=== PATIENT | male | born 1995 | race Caucasian/White ===

== ENCOUNTER 2016-09-11 18:02 | Emergency (ER) | payer OTHER ==
[~2016-09-11] VITALS: Ht 170.2 cm; Wt 66.7 kg
[~2016-09-11 18:02] MED LIST: AZIT250T PO; IBUP-103 PO
[2016-09-11 18:10] VITALS: TEMP 36.8; Ht 170.2 cm; Wt 66.7 kg
[2016-09-11] MEDS ORDERED: SODIUM CHLORIDE 0.9% 1000ML 1,000 ML IV STA (18:33)
[2016-09-11] MEDS ORDERED: KETOROLAC TROMETHAMINE 30 MG/ML VIAL IV STA (18:33)
--- NOTE | 2016-09-11 18:50 | EMERGENCY ROOM VISIT NOTE ---
History Report prepared by Anna Marie: Florencia Fierro Under the Supervision of: Dr. Evert Root M.D. First contact with patient: 18:24 Chief Complaint: CHEST PAIN Stated Complaint: CHEST PAIN,HEART ACHE Nursing Triage Summary: for the past week I have had intermittent chest pains/ "heart ache" denies any cardiac history. denies sob. "It just comes out of the blue" History of Present Illness The patient is a 20 year old male who presents to the Emergency Room with complaints of worsening chest pain with onset one week ago. He rates his discomfort as an 8/10. Today, the patient was working on homework when he started to experience more severe chest pain. He states that movement makes the pain worse, and that he feels as if his heart is racing when he climbs the stairs. When he leans on his left side, he feels that the chest pain is worse, causing a pressure sensation over his heart. At times, when he takes a deep breath, he feels as if someone is stabbing his heart. For the pain, the patient has tried using an inhaler, with some relief. The patient denies any trauma, any cardiac history, heavy weight lifting, fevers, cough, or cold over the past week, any past medical history. The patient notes that he smokes. Source of History: patient Onset: 1 week ago Position: chest Symptom Intensity: 8/10 Quality: other (chest pain) Timing: worsening Modifying Factors (Worsening): breathing, movement, other (leaning on his left side) Associated Symptoms: No cough, No fevers Note: The patient denies having cold symptoms over the past week. Review of Systems See HPI for pertinent positives & negatives. A total of 10 systems reviewed and were otherwise negative. Past Medical & Surgical Medical Problems: (1) Eczema (2) H. pylori infection Family History No significant family history Social History Smoking Status: Never Smoker Drug Use: none Marital Status: single Housing Status: unknown Occupation Status: student Current/Historical Medications Scheduled Famotidine (Pepcid), 40 MG PO HS Allergies Coded Allergies: No Known Allergies (Unverified , 09/11/16) Physical Exam Vital Signs Date Time Temp Pulse Resp B/P Pulse Ox O2 Delivery O2 Flow Rate FiO2 09/11/16 21:15 87 19 133/77 98 09/11/16 19:32 67 13 100 09/11/16 19:28 121/61 09/11/16 19:12 65 09/11/16 19:10 100 Room Air 09/11/16 19:07 135/74 09/11/16 18:10 36.8 75 18 142/80 100 Room Air Physical Exam GENERAL: Patient is a healthy-appearing well-nourished HEAD: Normocephalic atraumatic EYES: Ocular movements intact pupils equal and react to light OROPHARYNX mucous membranes are moist no exudates present no erythema or edema present NECK: Supple no nuchal rigidity CHEST: Good equal expansion LUNGS: Clear and equal to auscultation CARDIAC: Normal S1 and S2 ABDOMEN: Soft nontender no guarding BACK: No CVA tenderness EXTREMITIES: No pain upon palpation normal muscle strength in all groups no clubbing cyanosis or edema NEURO: Patient is following commands is answering questions appropriately. Alert and oriented x3 Cranial Nerves 2-12 grossly intact Medical Decision & Procedures ER Provider Diagnostic Interpretation: X-ray results as stated below per interpretation by me and the radiologist: SINGLE VIEW CHEST CLINICAL HISTORY: Atypical chest pain. FINDINGS: An AP, portable, upright chest radiograph is compared to study dated 04/20/2016. The examination is mildly degraded by portable technique and patient rotation. The cardiomediastinal silhouette is unremarkable. The lungs and pleural spaces are clear. No pneumothorax is seen. The bony thorax is grossly intact. IMPRESSION: No active disease in the chest. Electronically signed by: Wil Thompson M.D. 09/11/2016 7:26 PM Dictated Date/Time: 09/11/2016 7:25 PM Laboratory Results 09/11/16 18:50 Red Blood Count 5.53, Mean Corpuscular Volume 85.4, Mean Corpuscular Hemoglobin 29.8, Mean Corpuscular Hemoglobin Concent 35.0, Mean Platelet Volume 10.6, Neutrophils (%) (Auto) 59.7, Lymphocytes (%) (Auto) 25.2, Monocytes (%) (Auto) 6.5, Eosinophils (%) (Auto) 7.8, Basophils (%) (Auto) 0.3, Neutrophils # (Auto) 3.59, Lymphocytes # (Auto) 1.52, Monocytes # (Auto) 0.39, Eosinophils # (Auto) 0.47, Basophils # (Auto) 0.02 09/11/16 18:50 Test 09/11/16 18:50 09/11/16 19:01 09/11/16 19:08 09/11/16 20:47 White Blood Count 6.02 K/uL (4.8-10.8) Red Blood Count 5.53 M/uL (4.7-6.1) Hemoglobin 16.5 g/dL (14.0-18.0) Hematocrit 47.2 % (42-52) Mean Corpuscular Volume 85.4 fL (80-100) Mean Corpuscular Hemoglobin 29.8 pg (25-34) Mean Corpuscular Hemoglobin Concent 35.0 g/dl (32-36) Platelet Count 241 K/uL (130-400) Mean Platelet Volume 10.6 fL (7.4-10.4) Neutrophils (%) (Auto) 59.7 % Lymphocytes (%) (Auto) 25.2 % Monocytes (%) (Auto) 6.5 % Eosinophils (%) (Auto) 7.8 % Basophils (%) (Auto) 0.3 % Neutrophils # (Auto) 3.59 K/uL (1.4-6.5) Lymphocytes # (Auto) 1.52 K/uL (1.2-3.4) Monocytes # (Auto) 0.39 K/uL (0.11-0.59) Eosinophils # (Auto) 0.47 K/uL (0-0.5) Basophils # (Auto) 0.02 K/uL (0-0.2) RDW Standard Deviation 37.9 fL (36.4-46.3) RDW Coefficient of Variation 12.2 % (11.5-14.5) Immature Granulocyte % (Auto) 0.5 % Immature Granulocyte # (Auto) 0.03 K/uL (0.00-0.02) Est Creatinine Clear Calc Drug Dose 125.6 ml/min Estimated GFR () 143.0 Estimated GFR (Non- 123.4 BUN/Creatinine Ratio 16.7 (10-20) Calcium Level 8.9 mg/dl (8.5-10.1) Total Bilirubin 0.7 mg/dl (0.2-1) Direct Bilirubin mg/dl (0-0.2) Aspartate Amino Transf (AST/SGOT) 29 U/L (15-37) Alanine Aminotransferase (ALT/SGPT) 75 U/L (12-78) Alkaline Phosphatase 73 U/L (45-117) Total Creatine Kinase 82 U/L (39-308) Creatine Kinase MB 1.0 ng/ml (0.5-3.6) Creatine Kinase MB Ratio 1.2 (0-3.0) Troponin I < 0.015 ng/ml (0-0.045) Total Protein 7.5 gm/dl (6.4-8.2) Albumin 4.4 gm/dl (3.4-5.0) Lipase 158 U/L (73-393) Chemistry Specimen Hemolysis Bedside Hemoglobin 17.0 g/dl (14.0-18.0) Bedside Hematocrit 50 % (42-52) Bedside Sodium 142 mEq/L (135-144) Bedside Potassium 4.0 mEq/L (3.3-5.0) Bedside Chloride 102 mEq/L (101-112) Bedside Total CO2 27 mEq/l (24-31) Anion Gap 18.0 mmol/L (16-25) Bedside Blood Urea Nitrogen 16 mg/dl (7-18) Bedside Creatinine 0.8 mg/dl (0.6-1.3) Bedside Glucose (other) 92 mg/dl (70-99) Bedside Ionized Calcium (Ross) 1.21 mmol/l (1.12-1.32) Bedside D-Dimer 48 ng/mlFEU (0-450) Bedside Troponin I 0.000 ng/ml (0-0.045) Medications Administered Medications (Trade) Dose Ordered Sig/Shi Route Start Time Stop Time Status Last Admin Dose Admin Sodium Chloride (Nss 1000ml) 1,000 ml @ 999 mls/hr Q1H1M STAT IV 09/11/16 18:33 09/11/16 19:33 DC 09/11/16 19:10 999 MLS/HR Ketorolac Tromethamine (Toradol Inj) 30 mg NOW STAT IV 09/11/16 18:33 09/11/16 18:37 DC 09/11/16 19:09 30 MG Famotidine (Pepcid Tab) 20 mg NOW ONCE PO 09/11/16 20:30 09/11/16 20:31 DC 09/11/16 20:48 20 MG Sucralfate (Carafate Tab) 1 gm NOW ONCE PO 2/13/17 20:30 09/11/16 20:31 DC 09/11/16 20:48 1 GM Al Hydroxide/Mg Hydroxide (Maalox Susp) 30 ml STK-MED ONCE .ROUTE 09/11/16 20:45 09/11/16 20:46 DC 09/11/16 20:49 30 ML Lidocaine HCl (Viscous Lidocaine 2% Soln) 20 ml STK-MED ONCE .ROUTE 09/11/16 20:45 09/11/16 20:47 DC 09/11/16 20:49 20 ML ECG Indication: chest pain Rate (beats per minute): 67 Rhythm: normal sinus Findings: no ectopy, other (diffuse ST wave elevation in ) ED Course 1828: Past medical records reviewed. The patient was evaluated in room A4. A complete history and physical examination was performed. 1832: Toradol 30 mg IV, Sodium Chloride 1000 ml @ 999 mls/hr IV 2027: GI Cocktail 24 ml PO 2029: Carafate Tab 1 gm PO, Pepcid Tab 20 mg PO 2044: Lidocaine HCl 20 ml PO, Maalox Susp 30 ml PO 2058: Upon reexamination the patient is doing well. I discussed results and treatment plan with the patient. He verbalizes agreement and understanding. The patient is ready for discharge. Medical Decision The patient is a 20 year old male who presents to the ED with complaints of chest pain. Differential diagnosis: Etiologies such as cardiac ischemia, aortic dissection, pulmonary embolism, pneumonia, pneumothorax, musculoskeletal, infections, pericarditis, myocarditis , esophageal rupture, gastrointestinal, as well as others were entertained. The patient here in the emergency department has a normal EKG. As the patient' s pain has been ongoing for greater than 8 hours I expect his troponin to be elevated. As such she does not. The patient was given a GI cocktail, Pepcid, Carafate in the emergency department along with a normal saline bolus and Toradol. Repeat examination revealed improvement the patient's symptoms. I do believe that the patient as well as to be discharged home for follow-up with gastroenterology. Patient was in agreement with treatment plan. Impression Primary Impression: Precordial chest pain Additional Impression: Acid reflux Scribe Attestation The scribe's documentation has been prepared under my direction and personally reviewed by me in its entirety. I confirm that the note above accurately reflects all work, treatment, procedures, and medical decision making performed by me. Departure Information Dispostion Home / Self-Care Prescriptions Famotidine (Pepcid) 40 Mg Tab 40 MG PO HS for 10 Days, #10 TAB Prov: Evert Root MD 09/11/16 Forms HOME CARE DOCUMENTATION FORM, IMPORTANT VISIT INFORMATION, School Instructions, Work Instructions Patient Instructions My [facility] Additional Instructions Take 5 ml Maalox before every meal and at bedtime Clear liquid diet next 48 hours You have been examined and treated today on an emergency basis only. This is not a substitute for, or an effort to provide, complete comprehensive medical care. It is impossible to recognize and treat all injuries or illnesses in a single emergency department visit. It is therefore important that you follow up closely with [facility]. Call as soon as possible for an appointment. Thank you for your time and consideration. I look forward to speaking with you again soon. Please don't hesitate to call us if you have any questions. Problem Qualifiers Additional Impression: Acid reflux Esophagitis presence: with esophagitis Qualified Codes: K21.0 - Gastro- esophageal reflux disease with esophagitis
[2016-09-11 19:10] VITALS: O2SAT 100
[2016-09-11 19:13] LABS: ISTAT CREATININE 0.8 mg/dl (0.6-1.3); ISTAT IONIZED CALCIUM 1.21 mmol/l (1.12-1.32)
--- NOTE | 2016-09-11 19:27 | DIAGNOSTIC IMAGING REPORT ---
SINGLE VIEW CHEST CLINICAL HISTORY: Atypical chest pain. FINDINGS: An AP, portable, upright chest radiograph is compared to study dated 04/20/2016. The examination is mildly degraded by portable technique and patient rotation. The cardiomediastinal silhouette is unremarkable. The lungs and pleural spaces are clear. No pneumothorax is seen. The bony thorax is grossly intact. IMPRESSION: No active disease in the chest. Electronically signed by: Wil Thompson M.D. 09/11/2016 7:26 PM Dictated Date/Time: 09/11/2016 7:25 PM
[2016-09-11 19:29] LABS: BASO % 0.3 %; BASO ABS # 0.02 K/uL (0-0.2); COMPLETE YES; EOS % 7.8 %; HEMATOCRIT 47.2 % (42-52); IG% 0.5 %; LYMPH % 25.2 %; LYMPH ABS # 1.52 K/uL (1.2-3.4); MEAN CELL VOLUME 85.4 fL (80-100); MEAN CORPUSCULAR HEMOGLOBIN 29.8 pg (25-34); MEAN PLATELET VOLUME 10.6 fL (7.4-10.4); MONO % 6.5 %; NEUT % 59.7 %; PLATELET COUNT 241 K/uL (130-400); RED BLOOD COUNT 5.53 M/uL (4.7-6.1); WHITE BLOOD COUNT 6.02 K/uL (4.8-10.8)
[2016-09-11 19:32] LABS: ALT/SGPT 75 U/L (12-78); AST/SGOT 29 U/L (15-37); BLOOD UREA NITROGEN 15 mg/dl (7-18); BUN/CREATININE RATIO 16.7 (10-20); CALCIUM 8.9 mg/dl (8.5-10.1); CARBON DIOXIDE 29 mmol/L (21-32); CHLORIDE 106 mmol/L (98-107); CREATININE 0.87 mg/dl (0.60-1.40); GLUCOSE 88 mg/dl (70-99); SODIUM 142 mmol/L (136-145)
[2016-09-11 19:57] LABS: ALKALINE PHOSPHATASE 73 U/L (45-117); CKMB/CK RATIO 1.2 (0-3.0)
[2016-09-11] MEDS ORDERED: GI COCKTAIL PO STA (20:28)
[2016-09-11] MEDS ORDERED: FAMOTIDINE 20 MG TAB PO ONE (20:30)
[2016-09-11] MEDS ORDERED: SUCRALFATE 1 GM TAB PO ONE (20:30)
[2016-09-11] MEDS ORDERED: LIDOCAINE HCL 2% VISC SOLN 20 ML UDC ONE (20:45)
[2016-09-11] MEDS ORDERED: ALUMINUM/MAGNESIUM SUSP 30 ML UDC ONE (20:45)
[2016-09-11] MEDS ORDERED: FAMO40TA6 PO (20:59)
[2016-09-11 21:15] VITALS: BP 133/77; PULSE 87; O2SAT 98
== END 2016-09-11 21:15 | disposition home or self-care (01) ==
LOC: C.EDB 18:03 → C.EDA 21:15
DX: R07.2 Precordial pain (principal); K21.0 Gastro-esophageal reflux disease with esophagitis

== ENCOUNTER 2016-09-23 03:26 | Emergency (ER) | payer OTHER ==
[~2016-09-23] VITALS: Ht 167.6 cm; Wt 67.9 kg
[2016-09-23 03:49] VITALS: TEMP 36.8; Ht 167.6 cm; Wt 67.9 kg
[2016-09-23] MEDS ORDERED: CIPROFLOXACIN HCL 0.3% OP SOLN 2.5 ML BTL OPL ONE (06:15)
[2016-09-23 06:28] VITALS: BP 120/82; PULSE 66; O2SAT 98
[2016-09-23] MEDS ORDERED: AZITTAB PO (06:30)
--- NOTE | 2016-09-23 06:41 | EMERGENCY ROOM VISIT NOTE ---
History Report prepared by Anna Marie: Nirmal Cortez Under the Supervision of: Dr. Vanda Gutierrez D.O. First contact with patient: 05:51 Chief Complaint: EYE ASSESSMENT Stated Complaint: RED EYE,SINUS,SORE THROAT History of Present Illness The patient is a 21 year old male who presents to the Emergency Room with complaints of constant left side eye drainage and itching beginning a few hours ago. He states that his symptoms began with a sore throat five days ago. He states that his sore throat is worse in the mornings and improves throughout the day with use of painkillers. The patient does not wear glasses or contacts. Source of History: patient Onset: a few hours ago Position: eye (left) Quality: other (drainage and itching) Timing: constant Associated Symptoms: + sorethroat Review of Systems See HPI for pertinent positives & negatives. A total of 10 systems reviewed and were otherwise negative. Past Medical & Surgical Medical Problems: (1) Eczema (2) H. pylori infection Family History No significant family history Social History Smoking Status: Former Smoker Drug Use: none Marital Status: single Housing Status: unknown Occupation Status: student Current/Historical Medications Scheduled Azithromycin (Zithromax Z-Nithin), 0 PO UD Allergies Coded Allergies: No Known Allergies (Unverified , 09/23/16) Physical Exam Vital Signs Date Time Temp Pulse Resp B/P Pulse Ox O2 Delivery O2 Flow Rate FiO2 09/23/16 06:28 66 18 120/82 98 Room Air 09/23/16 03:49 36.8 76 18 145/77 97 Room Air Right Eye Acuity: 20/30 Left Eye Acuity: 20/30 Physical Exam HEENT: Head - normocephalic and atraumatic Pupils are equal, round, and reactive to light. Extraocular eye muscles are intact, and sclera are anicteric. Mild lid edema to the left eye. No surrounding erythema. There is moderate scleral injection noted with some thick yellow mucus coming from that eye. Nose - moist nasal mucosa without discharge. Mouth - moist buccal mucosa. Ears - Left ear is blocked by cerumen. Right ear appears normal. Oropharynx is nonerythematous and there is no tonsillar exudate or edema noted. Neck: Supple; no JVD, nuchal rigidity, cervical lymphadenopathy. Heart: Regular rate and rhythm. There is a normal S1 and S2 with no murmurs, clicks, or gallops appreciated. Lungs: Clear to auscultation bilaterally with no wheezes, rales, or rhonchi. Abdomen: Soft, completely nontender, nondistended, with good bowel sounds. There are no palpable pulsatile masses or hepatosplenomegaly. There is no guarding, rigidity, or rebound noted. Extremities: No evidence of cyanosis, clubbing, or edema. There are easily palpable peripheral pulses. Skin: warm and dry with good turgor and no rashes. Medical Decision & Procedures Medications Administered Medications (Trade) Dose Ordered Sig/Shi Route Start Time Stop Time Status Last Admin Dose Admin Ciprofloxacin HCl (Ciprofloxacin 0.3% Op Soln) 2 drops NOW ONCE OPL 09/23/16 06:15 09/23/16 06:16 DC 09/23/16 06:14 2 DROPS Procedure Medications include: Ciprofloxacin 2 drops OPL. ED Course 0555: Past medical records reviewed. The patient was evaluated in room A11. A complete history and physical exam was performed. 0615: Ordered Ciprofloxacin 0.3% Op Soln 2 drops OPL. 0630: Upon reevaluation, the patient is resting comfortably. I discussed findings and results with him. He verbalized agreement of the treatment plan. The patient was discharged home. Medical Decision The patient is a 21 year old male who presents to the ED with left eye drainage. Differential diagnosis includes conjunctivitis, orbital cellulitis, periorbital cellulitis, URI, pharyngitis, mononucleosis, as well as other etiologies were considered. This is a 21-year-old male patient who describes symptoms of an upper respiratory infection. He has since developed conjunctivitis to the left eye. He complains mostly with sore throat. His symptoms seem consistent with a viral URI and pink eye. However, the patient is concerned that he may have a bacterial infection. The patient was placed on Ciloxan eyedrops for the next 3 days. I also given prescription for antibiotics if his sore throat is not improving or if his symptoms worsen. Otherwise, the patient can follow-up with student health services if symptoms are not resolving. I do not believe that the patient is suffering from acute mono as he has no posterior lymphadenopathy and no fever. Impression Primary Impression: Conjunctivitis, left eye Additional Impression: URI (upper respiratory infection) Scribe Attestation The scribe's documentation has been prepared under my direction and personally reviewed by me in its entirety. I confirm that the note above accurately reflects all work, treatment, procedures, and medical decision making performed by me. Departure Information Dispostion Home / Self-Care Prescriptions Azithromycin (ZITHROMAX Z-NITHIN) 250 Mg Tab 0 PO UD, #1 TAB 2 TABS DAY 1, THEN 1 TAB DAILY FOR 4 DAYS. Prov: Vanda Gutierrez D.O. 09/23/16 Referrals No Doctor, Assigned (PCP) Forms HOME CARE DOCUMENTATION FORM, IMPORTANT VISIT INFORMATION, WORK / SCHOOL INSTRUCTIONS Patient Instructions Conjunctivitis Infec Cause, My [facility] Additional Instructions Rest. Warm compressed to the left eye. If redness spreads outward from the left eye or you develop increased pain, return to the ER If the sore throat is not improving, start the antibiotics ciloxan - 2 drops to left eye every 4-6 hours over next 3 days Problem Qualifiers
== END 2016-09-23 06:50 | disposition home or self-care (01) ==
LOC: C.EDB 03:27 → C.EDA 06:50
DX: H10.89 Other conjunctivitis (principal); J06.9 Acute upper respiratory infection, unspecified; Z87.891 Personal history of nicotine dependence

== ENCOUNTER → 2016-11-07 | Outpatient (CLI) | payer OTHER ==
[~2016-11-07] MED LIST changes: -AZIT250T PO; +CHOL1000 PO; -IBUP-103 PO
--- NOTE | 2016-11-07 19:45 | DIAGNOSTIC IMAGING REPORT ---
LEFT ELBOW MRI HISTORY: Left elbow pain. TECHNIQUE: Multiplanar multisequence MRI of the left elbow was performed without the use of intravenous contrast. COMPARISON STUDY: None. FINDINGS: There is normal marrow signal intensity seen within the visualized osseous structures. No fracture or dislocation within the elbow. No joint effusion. The ulnar nerve is normal in course, caliber, and signal intensity. The triceps tendon is intact. The radial and ulnar collateral ligaments appear to be grossly intact. Subcutaneous edema within the distal anterior. Small amount of fluid at the fat/muscle junction anteriorly. Mild edema within the medial and distal brachialis muscle and surrounding the distal brachialis tendon. However, the distal biceps and distal brachialis tendons appear intact. IMPRESSION: 1. Mild edema within the medial and distal brachialis muscle and surrounding the distal brachialis tendon. This is consistent with a grade I muscular strain. The distal biceps tendon appears to be intact. 2. Mild subcutaneous edema within the distal anterior upper arm suggestive of a soft tissue contusion. This also small amount of fluid at the junction of the subcutaneous fat/muscles at this location. This could represent a small de-gloving injury. Electronically signed by: Marvin Tejada M.D. 11/07/2016 7:43 PM Dictated Date/Time: 11/07/2016 7:32 PM
== END | disposition home or self-care (01) ==
LOC: C.MRI 17:59
PROVIDERS: ATTEND Family Medicine
DX: M79.602 Pain in left arm (principal)

== ENCOUNTER 2017-03-24 19:00 | Emergency (ER) | payer OTHER ==
[~2017-03-24] VITALS: Ht 170.2 cm; Wt 74.1 kg
[2017-03-24 19:05] VITALS: BP 124/74; PULSE 70; TEMP 36.5; O2SAT 99; Ht 170.2 cm; Wt 74.1 kg
--- NOTE | 2017-03-24 19:24 | EMERGENCY ROOM VISIT NOTE ---
ED Visit Note First contact with patient: 19:09 CHIEF COMPLAINT: Finger laceration HISTORY OF PRESENT ILLNESS: This patient is a pleasant 21-year-old male that presented to the emergency department complaining of a laceration that he sustained to his finger while playing basketball 5 days ago. He cleaned the wound and has kept it bandage. He is concerned that it is not healing properly. He denies any pain. No significant swelling. His tetanus shot is up -to-date. REVIEW OF SYSTEMS: A 6 system review of systems was completed with positives and pertinent negatives listed in the HPI. ALLERGIES: No known drug allergies MEDICATIONS: None PMH: Otherwise healthy SOCIAL HISTORY: He occasionally drinks alcohol. The patient is a [email or web address] student. No illicit drug use. Denies tobacco use. PHYSICAL EXAM: Vital Signs: Reviewed Nurse's notes, vital signs stable. GENERAL : 21-year-old male, in no acute distress, well developed, well nourished. SKIN : There is a 0.5 cm V shaped superficial avulsion to the dorsal aspect of the left fifth finger. There is no foreign material in the wound and it looks clean. There is no bleeding. No deep structures such as tendons, bones, or significant blood vessels are seen in the base of the wound. Extension and flexion of the finger is full and strong. Full range of motion of the wrist and other fingers. Capillary refill less than 2 seconds. Normal sensation EMERGENCY DEPARTMENT COURSE: The patient was seen and examined. I thoroughly reviewed discharge instructions, and he was discharged in good condition. DIAGNOSIS: Finger laceration DISCHARGE INSTRUCTIONS & TREATMENT: Please clean the wound twice daily. This may be done with soapy water or a mixture of hydrogen peroxide and water 50:50. You may keep it bandaged during the day to prevent it from pulling open. Please try to leave it on bandaged at night so it may get some air. The piece of excess skin will eventually fall off and the wound will heal on its own. Please watch for signs of infection such as increased redness, swelling, red streaking up the hand or fever. Please return to the emergency department with any of the symptoms.
[2017-03-24] MEDS ORDERED: CHOL1000 PO (19:37)
== END 2017-03-24 19:32 | disposition home or self-care (01) ==
LOC: C.EDB 19:01 → C.EDD 19:32
DX: S61.217A Laceration without foreign body of left little finger without damage to nail, initial encounter (principal); W45.8XXA Other foreign body or object entering through skin, initial encounter; Y93.67 Activity, basketball

== ENCOUNTER 2017-09-20 00:05 | Emergency (ER) | payer OTHER ==
[~2017-09-20] VITALS: Ht 170.2 cm; Wt 75.1 kg
[2017-09-20 00:10] VITALS: TEMP 36.9; Ht 170.2 cm; Wt 75.1 kg
[2017-09-20 01:03] LABS: INFLUENZA B ANTIGEN Neg for Influ B (NEG)
[2017-09-20] MEDS ORDERED: ALBUTEROL HFA 8 GM INHALER INH STA (02:12)
[2017-09-20 02:24] VITALS: BP 137/80; PULSE 71; O2SAT 98
--- NOTE | 2017-09-20 03:42 | EMERGENCY ROOM VISIT NOTE ---
History First contact with patient: 00:22 Chief Complaint: FLU LIKE SX Stated Complaint: FEVER,SORE THROAT,FATIGUE History of Present Illness The patient is a 22 year old male who presents to the Emergency Room with complaints of cough, congestion, sore throat, subjective fever and chills and fatigue for the past 3 days. Patient quit smoking a few months ago. Patient denies chest pain, dyspnea, neck stiffness, abdominal pain, vomiting, diarrhea, earache. He is tolerating p.o. fluids and food. No recent travel. Review of Systems An 10 system review of systems was completed with positives and pertinent negatives listed in the HPI. Past Medical/Surgical History Medical Problems: (1) Eczema (2) H. pylori infection Family History No significant family history Social History Smoking Status: Former Smoker Drug Use: none Marital Status: single Occupation Status: [employer] student Current/Historical Medications Scheduled Cholecalciferol (Vitamin D3), Unknown Dose PO WK Physical Exam Vital Signs Date Time Temp Pulse Resp B/P (MAP) Pulse Ox O2 Delivery O2 Flow Rate FiO2 09/20/17 02:24 71 18 137/80 98 09/20/17 01:57 71 18 137/80 98 Room Air 09/20/17 00:10 36.9 91 20 135/72 96 Room Air Physical Exam VITALS: Vitals are noted on the nurse's note and reviewed by myself. Vital signs stable. GENERAL: Pleasant male, in no acute distress, nondiaphoretic, well-developed well-nourished. SKIN: The skin was without rashes, erythema, edema, or bruising. There is no tenting of the skin. Capillary reflex less than 2 seconds. HEAD: Normocephalic atraumatic. EARS: External auditory canals clear, tympanic membranes pearly gregory without erythema or effusion bilaterally. EYES: Pupils equal round and reactive to light and accommodation. Conjunctivae without injection, sclerae without icterus. Extraocular movements intact. NOSE: Patent, turbinates without inflammation or discharge. No sinus tenderness. MOUTH: Mucous membranes moist. Pharynx without erythema or exudate. Uvula midline. Airway patent. Tongue does not deviate. NECK: Supple without nuchal rigidity. No lymphadenopathy. No thyromegaly. Cervical spine is nontender. No JVD. HEART: Regular rate and rhythm without murmurs gallops or rubs. LUNGS: Clear to auscultation bilaterally without wheezes, rales or rhonchi. No dullness to percussion. No retractions or accessory muscle use. ABDOMEN: Positive bowel sounds x 4. Normal tympanic percussion. Soft, nontender, without masses or organomegaly. Davies sign negative. No guarding or rebound tenderness. MUSCULOSKELETAL: No muscle atrophy, erythema, or edema noted. NEURO: Patient was alert and oriented to person place and time. Normal sensation to light and sharp touch. No focal neurological deficits. Medical Decision & Procedures Laboratory Results Test 09/20/17 00:17 Influenza Type A Antigen Neg for Influ A (NEG) Influenza Type B Antigen Neg for Influ B (NEG) Medications Administered Medications (Trade) Dose Ordered Sig/Shi Route Start Time Stop Time Status Last Admin Dose Admin Albuterol (Ventolin Hfa Inhaler) 2 puffs ONE STAT INH 09/20/17 02:12 09/20/17 02:13 DC 09/20/17 02:17 60 PUFFS ED Course Prior records/ancillary studies reviewed. Triage Nursing notes reviewed. The patient's history was concerning for cold symptoms Differential diagnosis: Etiologies such as viral syndrome, otitis, pharyngitis, pneumonia, influenza, meningitis, sepsis, bacteremia, as well as others were entertained. Physical examination: Patient is alert, interactive and well appearing ER treatment provided: Albuterol inhaler On reassessment the patient felt better. Diagnostics interpreted by me: The labs revealed negative strep test. Negative flu Imaging studies: Chest x-ray with no acute consolidation, pneumothorax or free air per my interpretation This appears to be consistent with bronchitis most likely viral etiology. Patient's been sick for 3 days. No obvious pneumonia on x-ray. Negative flu. Negative strep test. Patient was advised to rest, stay well-hydrated and to take medicines as directed. He is advised to follow-up with health services in a few days here in the ER sooner for high fevers, lethargy, neck stiffness, worsening signs or symptoms or as needed. By the evaluation outlined above emergent etiologies such as otitis, pharyngitis, pneumonia, meningitis, urinary tract infection, sepsis, bacteremia, as well as others were deemed relatively unlikely. The pt informed about the findings as listed above. All questions were answered and pleased with the treatment. Return instructions were outlined and the patient was discharged in stable condition. Referral: The patient was referred back to their primary care physician for follow-up in 2 to 3 days for a recheck of the current condition. Medical Decision As above Medication Reconcilliation Current Medication List: was personally reviewed by me Blood Pressure Screening Patient's blood pressure: Normal blood pressure Impression Primary Impression: Acute bronchitis Departure Information Dispostion Home / Self-Care Condition GOOD Forms HOME CARE DOCUMENTATION FORM, School Instructions, Return To School: 2 days IMPORTANT VISIT INFORMATION Patient Instructions Bronchitis Acute, [facility] Additional Instructions Acetaminophen(Tylenol) may be used for fever or pain. Use 1000mg every six hours as needed. Avoid using more than 3000mg in a 24 hour period. (AND/OR) Ibuprofen(Motrin, Advil) may be used for fever or pain. Use 600mg every six hours as needed. Take with food. Avoid using more than 2400mg in a 24 hour period. Do not use 2400mg per day for more than three consecutive days without physician direction. Prolonged inappropriate use can lead to stomach upset or ulcers. Afrin nasal spray: 2-3 sprays to each nostril twice daily as needed for congestion. Do not use for more than 3-4 days because it can lead to worsening rebound congestion. Pseudoephedrine(Sudaphed): 30-60mg every 6 hours as needed for nasal congestion. Do not take this with other stimulant products or supplements. Albuterol Inhaler: Take 2 puffs four times daily for seven days, then as needed. Rest and drink plenty of fluids. Controlling your fever with Tylenol and Ibuprofen as above will make you feel better. Wash your hands after nose blowing, sneezing, or coughing. Most germs are spread through contact, therefore improper hygiene may result in your close contacts and loved ones becoming ill just like you. Continue current medications. Return to the ER for severe headache, neck stiffness, chest pain, difficulty breathing, fevers, vomiting, worsening of your condition, or as needed. Follow up with your primary physician this week for a recheck of your current condition. School Instructions Return To School: 2 days Problem Qualifiers Primary Impression: Acute bronchitis Bronchitis organism: unspecified organism Qualified Codes: J20.9 - Acute bronchitis, unspecified
--- NOTE | 2017-09-20 06:20 | DIAGNOSTIC IMAGING REPORT ---
CHEST 2 VIEWS ROUTINE CLINICAL HISTORY: cough/fever distribution COMPARISON STUDY: 09/11/2016 FINDINGS: The bones soft tissues and hemidiaphragms are normal. The cardiomediastinal silhouette is normal. The lungs are clear. The pulmonary vasculature is normal. IMPRESSION: Negative chest. The above report was generated using voice recognition software. It may contain grammatical, syntax or spelling errors. Electronically signed by: Margarito Zhou M.D. 09/20/2017 6:19 AM Dictated Date/Time: 09/20/2017 6:18 AM
== END 2017-09-20 02:25 | disposition home or self-care (01) ==
LOC: C.EDB 00:06 → C.EDC 02:25
DX: J20.9 Acute bronchitis, unspecified (principal); Z87.891 Personal history of nicotine dependence

== ENCOUNTER 2017-09-23 16:00 | Emergency (ER) | payer OTHER ==
[~2017-09-23] VITALS: Ht 170.2 cm; Wt 73.7 kg
[2017-09-23 16:02] VITALS: TEMP 36.8; Ht 170.2 cm; Wt 73.7 kg
[2017-09-23] MEDS ORDERED: METH4PAK PO (16:43)
[2017-09-23] MEDS ORDERED: BENZ1CAP90 PO (16:44)
--- NOTE | 2017-09-23 16:46 | EMERGENCY ROOM VISIT NOTE ---
ED Visit Note First contact with patient: 16:28 CHIEF COMPLAINT: Sore throat, congestion HISTORY OF PRESENT ILLNESS: This 22-year-old male patient presents to the emergency department ambulatory, complaining of URI symptoms x 1 week. The patient was seen here on September 20 and diagnosed with acute bronchitis and given a prescription for an inhaler. The patient states they have been experiencing congestion, runny nose, sore throat, cough, chills, and mild subjective fever. He states his symptoms are improving, however his sore throat is not going away. They deny any other symptoms including otalgia, swollen lymph nodes, objective fever, nausea, or vomiting. There is pain with swallowing due to the sore throat. The patient describes the drainage from the nose as clear and runny. There is bilateral sinus pressure without pain. The patient has taken Tylenol, DayQuil, and albuterol with mild relief in his symptoms. The patient does not recall any known exposure to strep throat. He did have strep screen, influenza testing, and chest x-ray performed when he was here on the , all negative. The patient does not have a history of sinus infections. Denies a rash. REVIEW OF SYSTEMS: A 10 system system review of systems was performed with positives and pertinent negatives listed in the history of present illness. All other systems were reviewed and are negative. ALLERGIES: None MEDICATIONS: Albuterol PMH: None SOCIAL HISTORY: The patient is a [employer] student. He lives locally with roommates. He denies drug, alcohol, tobacco use. PHYSICAL EXAM: VITALS: Vitals are noted on the nurse's note and reviewed by myself. Vital signs stable. GENERAL: This is a 22-year-old male, in no acute distress, nondiaphoretic, well- developed well-nourished. SKIN: The skin was without rashes, erythema, edema, or bruising. There is no tenting of the skin. Capillary reflex less than 2 seconds. HEAD: Normocephalic atraumatic. EARS: External auditory canals clear, bilateral tympanic membranes pearly gregory without erythema or effusion bilaterally. EYES: Pupils equal round and reactive to light and accommodation. Conjunctivae without injection, sclerae without icterus. Extraocular movements intact. NOSE: Patent, turbinates without inflammation or erythema. Clear, runny rhinorrhea noted. No sinus tenderness. MOUTH: Mucous membranes moist. Tonsils are not enlarged. Pharynx without erythema, edema, or exudate. Uvula midline. Airway patent. Tongue does not deviate. NECK: Supple without nuchal rigidity. No lymphadenopathy. No thyromegaly. Cervical spine is nontender. No JVD. HEART: Regular rate and rhythm without murmurs gallops or rubs. LUNGS: Clear to auscultation bilaterally without wheezes, rales or rhonchi. No dullness to percussion. No retractions or accessory muscle use. MUSCULOSKELETAL: No muscle atrophy, erythema, or edema noted. Full range of motion without joint tenderness in all extremities. No tenderness to palpation. Normal gait. Strength 5/5 throughout. NEURO: Patient was alert and oriented to person place and time. Normal sensation to light and sharp touch. No focal neurological deficits. EMERGENCY DEPARTMENT COURSE: The patient was seen and evaluated as above. Previous medical records and testing reviewed. The patient has been sick for less than 1 week, and states his symptoms are improving. His symptoms are consistent with a viral upper respiratory infection. He did have chest x-ray, influenza testing, and strep testing which were all negative, including strep culture. I suspect the patient is suffering from an upper respiratory infection , and to suspect a viral etiology. The patient will be given steroids and cough medicine to help with his symptoms. He was encouraged to follow-up with [facility] in 2-3 days if no improvement in his symptoms. Discharge instructions reviewed, and the patient was discharged home in good condition. I attest that I have personally reviewed the patient's current medication list. Patient was found to have normal blood pressure on screening and does not require follow-up. DIFFERENTIAL DIAGNOSIS: Influenza, pneumonia, bronchitis, tracheobronchitis, acute Sinusitis, Acute pharyngitis, URI, Viral pharyngitis, Strep Pharyngitis, [id number] Disease, Peritonsillar abscess, tonsilitis, malignancy, and others DIAGNOSIS: Upper respiratory infection, acute bronchitis Problem List Medical Problems: (1) Eczema Status: Chronic (2) H. pylori infection Status: Chronic Current/Historical Medications Scheduled Dextromethorphan-Phenylephrine (Vicks Dayquil Cold & Flu), 2 CAP PO DAILY Methylprednisolone (Medrol Dosepak), 0 PO DAILY Scheduled PRN Acetaminophen (Tylenol), 1,000 MG PO TID PRN for Pain or Fever Benzonatate (Tessalon Perles), 200 MG PO TID PRN for Cough Allergies Coded Allergies: No Known Allergies (Unverified , 09/23/17) Vital Signs Date Time Temp Pulse Resp B/P (MAP) Pulse Ox O2 Delivery O2 Flow Rate FiO2 09/23/17 16:57 73 18 135/82 97 09/23/17 16:02 98 Room Air 09/23/17 16:02 36.8 78 16 132/85 98 Room Air Departure Information Impression Primary Impression: Upper respiratory infection Dispostion Home / Self-Care Condition GOOD Prescriptions Benzonatate (Tessalon Perles) 200 Mg Cap 200 MG PO TID Y for Cough, #30 CAP Prov: Camelia Torres PA-C 09/23/17 Methylprednisolone (MEDROL DOSEPAK) 4 Mg Nithin 0 PO DAILY, #1 PKT Prov: Camelia Torres PA-C 09/23/17 Referrals No Doctor, Assigned (PCP) Patient Instructions ED Upper Resp Infec No Abx Tx, My [facility] Additional Instructions You were seen and evaluated in the emergency department today for an upper respiratory infection. I do feel that based on your symptoms, and the duration of illness, this is likely viral in nature. As discussed, antibiotics will not treat viral illness. You have been prescribed a Medrol Dosepak. This is a steroid which will help decrease your inflammation, redness, and itch. Take the medicine as prescribed. Take the ENTIRE 6 day course of the steroids. Do not take any NSAIDs while taking Medrol Dosepak (Motrin, Advil, ibuprofen, Aleve, naproxen) You have been provided with an albuterol inhaler (from your last visit) to use for wheezing or difficulty breathing. Use this inhaler 1-2 puffs every 4-6 hours as needed. If you find that your symptoms are not improving with the use of the inhaler, or if you find that you need to use the inhaler longer than 1 week, return to the ED or follow-up with your PCP. You have been given benzonatate (Tessalon Pearles) to be used for coughing. These should be taken 1 capsule up to 3 times per day as needed for coughing. Do not take this medication more than prescribed. You may use this medication in addition to OTC cough medications. For your sore throat, you may use a 1:1 mixture of liquid Benadryl and liquid Maalox. Gargle and spit this mixture. It will help to soothe the throat and provide some relief. Drink warm tea with honey and lemon, as this will also help to soothe the throat. Gargle with salt water frequently. As discussed, you should take OTC Mucinex and/or Sudafed for your symptoms. Please do not exceed the recommended daily dosages. Ibuprofen(Motrin, Advil) may be used for fever or pain. Use 600mg every six hours as needed. Take with food. Avoid using more than 2400mg in a 24 hour period. Do not use 2400mg per day for more than three consecutive days without physician direction. Prolonged inappropriate use can lead to stomach upset or ulcers. You may take Naproxen 1-2 tablets twice daily in place of ibuprofen. This medication will help with the swelling in your sinuses. Do not take these medications while on steroids (Medrol Dosepak) (AND/OR) Acetaminophen(Tylenol) may be used for fever or pain. Use 1000mg every six hours as needed. Avoid using more than 3000mg in a 24 hour period. For congestion, you may use Flonase OTC. You may want to consider zinc, echinacea, and vitamin C to help boost your immunity. Please get plenty of rest and drink plenty of fluids. Please return or follow-up with your PCP in 1 week if you are not experiencing any improvement in your symptoms. Return to the emergency department for coughing up blood, difficulty breathing, chest pain, worsening symptoms, or for other concerns. Problem Qualifiers Primary Impression: Upper respiratory infection URI type: unspecified viral URI Qualified Codes: J06.9 - Acute upper respiratory infection, unspecified
[2017-09-23] MEDS ORDERED: ACET-1256 PO (16:49)
[2017-09-23] MEDS ORDERED: DEXT1CAP9 PO (16:51)
[2017-09-23 16:57] VITALS: BP 135/82; PULSE 73; O2SAT 97
== END 2017-09-23 16:57 | disposition home or self-care (01) ==
LOC: C.EDB 16:01 → C.EDD 16:57
DX: J06.9 Acute upper respiratory infection, unspecified (principal)